=== PATIENT | female | born 1990 | race African-American/Black ===

== ENCOUNTER 2017-01-22 16:51 | Emergency (ER) | payer MEDICAID ==
[~2017-01-22] VITALS: Ht 167.6 cm; Wt 84.0 kg
[2017-01-22] MEDS ORDERED: ACETAMINOPHEN 650 MG/20.3 ML SOLUTION UDCUP PO ONE (17:30)
[2017-01-22] MEDS ORDERED: IBUPROFEN 800 MG TABLET PO ONE (17:30)
[2017-01-22 18:00] VITALS: BP 122/79
== END 2017-01-22 18:43 | disposition home or self-care (01) ==
LOC: EMS 16:52
DX: L02.413 Cutaneous abscess of right upper limb (principal); F17.210 Nicotine dependence, cigarettes, uncomplicated
CPT/HCPCS: 10060; 99283

== ENCOUNTER 2018-01-19 20:17 | Emergency (ER) | payer MEDICAID ==
[~2018-01-19] VITALS: Ht 167.6 cm; Wt 81.8 kg
[2018-01-19] MEDS ORDERED: KETOROLAC TROMETHAMINE 30 MG/ML VIAL IM ONE (21:30)
[2018-01-19] MEDS ORDERED: DEXAMETHASONE SOD PHOS 4 MG/ML 5 ML VIAL PO ONE (21:30)
[2018-01-19 22:03] VITALS: BP 152/94
== END 2018-01-19 22:07 | disposition home or self-care (01) ==
LOC: EMS 20:21
DX: M54.12 Radiculopathy, cervical region (principal); F17.210 Nicotine dependence, cigarettes, uncomplicated; F12.10 Cannabis abuse, uncomplicated; X50.0XXA Overexertion from strenuous movement or load, initial encounter; Y93.B3 Activity, free weights; Y92.39 Other specified sports and athletic area as the place of occurrence of the external cause; Y99.8 Other external cause status
CPT/HCPCS: 81025; 96372; 99283; J1100; J1885

== ENCOUNTER 2019-08-24 06:11 | Emergency (ER) | payer MEDICAID, OTHER ==
[~2019-08-24] VITALS: Ht 165.1 cm; Wt 75.0 kg
[2019-08-24] MEDS ORDERED: DEXAMETHASONE 4 MG TABLET PO ONE (06:45)
[2019-08-24] MEDS ORDERED: MAALOX/LIDOCAINE/NYSTATIN SUSP 5 ML ORAL.SYG MM ONE (06:45)
[2019-08-24 06:55] LABS: INFLUENZA TYPE A NEGATIVE FOR TYPE A (NEGATIVE); INFLUENZA TYPE B NEGATIVE FOR TYPE B (NEGATIVE); RAPID GROUP A STREP POSITIVE (NEGATIVE)
[2019-08-24] MEDS ORDERED: PENICILLIN G BENZATHINE LA 1,200,000 UNITS/2 ML SYRINGE IM ONE (07:30)
[2019-08-24 07:36] VITALS: BP 133/81
== END 2019-08-24 07:55 | disposition home or self-care (01) ==
LOC: EMS 06:12
DX: R07.0 Pain in throat (principal); F17.210 Nicotine dependence, cigarettes, uncomplicated; F12.90 Cannabis use, unspecified, uncomplicated
CPT/HCPCS: 87430; 87804; 96372; 99283; J0561; J8540